=== PATIENT | female | born 1955 | race Caucasian/White ===

== ENCOUNTER 2022-02-14 16:11 | Emergency (ER) | payer OTHER, SELFPAY ==
[2022-02-14 16:17] VITALS: BP 170/79; PULSE 61; RESP 22; TEMP 36.5; O2SAT 100
--- NOTE | 2022-02-14 17:04 | ED.NAVMDI ---
HPI - Nausea/Vomiting/Diarrhea General Chief complaint: Nausea/Vomiting/Diarrhea Stated complaint: Vertigo Nausea Vomiting Time Seen by Provider: 02/14/22 16:59 Source: patient Mode of arrival: Wheelchair Related Data Allergies Allergy/AdvReac Type Severity Reaction Status Date / Time No Known Drug Allergies Allergy Verified 02/14/22 16:21 Patient History Social History Smoking Status: Never smoker Smoking Status: Never smoker Exam Initial Vital Signs Initial Vital Signs: Vital Signs Temperature 97.7 F 02/14/22 16:17 Pulse Rate 61 02/14/22 16:17 Respiratory Rate 22 02/14/22 16:17 Blood Pressure 170/79 H 02/14/22 16:17 Pulse Oximetry 100 02/14/22 16:17 Oxygen Delivery Method 02/14/22 16:17 Course Orders Ordered: ED Orders 02/14/22 16:30 CMP [Comprehensive Metabolic Panel] Stat Complete Blood Count AUTO DIFF Stat Vital Signs Vital signs: Vital Signs - 8 hr 02/14/22 16:17 Temperature 97.7 F Pulse Rate 61 Respiratory Rate 22 Blood Pressure 170/79 H Pulse Oximetry 100 Oxygen Delivery Method Room Air MDM - Nausea/Vomiting/Diarrhea Lab Data Result diagrams: 02/14/22 16:30 02/14/22 16:30
[2022-02-14 17:09] LABS: Alanine Aminotransferase 60 IU/L (<35); Albumin 4.2 g/dL (3.5-5.0); Albumin Globulin Ratio 1.4 (1.0-2.8); Alkaline Phosphatase 62 U/L (38-126); Aspartate Aminotransferase 51 IU/L (14-36); BUN Creatinine Ratio 26.6 (6-22); Bilirubin Total 0.5 mg/dL (0.2-1.3); Blood Urea Nitrogen 17 mg/dL (7-17); Calcium 8.7 mg/dL (8.4-10.2); Carbon Dioxide 27 mmol/L (22-32); Chloride 104 mmol/L (98-107); Estimated Glomerular Filt Rate > 60 mL/min (>60); Glucose 132 mg/dL (80-110); HEMOLYSIS 15 (0-50); Sodium 139 mmol/L (137-145); Total Protein 7.2 g/dL (6.3-8.2)
[2022-02-14 17:10] LABS: Add Manual Diff / Slide Review NO; Basophils Absolute Auto 0 /uL (0-100); Basophils Percent Auto 0.4 % (0-2); Eosinophils Absolute Auto 0 /uL (0-450); Eosinophils Percent Auto 0.1 % (2-4); Hematocrit 39.7 % (36-46); Hemoglobin 13.2 g/dL (12.0-16.0); Lymphocytes Absolute Auto 700 /uL (1100-4500); Lymphocytes Percent Auto 7.4 % (25-40); Mean Corpuscular HGB Conc 33.3 % (30-36); Mean Corpuscular Hemoglobin 28.7 PG (26-34); Mean Corpuscular Volume 86.1 fL (80-100); Monocytes Absolute Auto 300 /uL (0-900); Monocytes Percent Auto 2.5 % (3-14); Neutrophils Absolute Auto 9000 /uL (1500-7000); Neutrophils Percent Auto 89.6 % (50-75); Platelet Count 238 X10^3/uL (150-400); Red Blood Cell Count 4.61 X10^6/uL (4.0-5.2); Red Cell Distribution Width 13.7 % (11.6-14.8)
--- NOTE | 2022-02-14 17:24 | ED.NAVMDI ---
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 On her way there, she developed disequilibrium. She is not sensing a spinning sensation. She developed nausea & vomiting. She went to her clinic, she was given Zofran 0DT with no effect. The patient was not previously ill. She had no URI symptoms, sinus congestion, or ear pain. She denies headaches. She was not experiencing visual changes. She denies confusion, or speech changes. She was unaware of any lateralizing numbness or weakness. The incident started about 3 hours before her assessment here. From [facility] she had to ride a [place] back here. Symptoms have resolved other than the slightest amount of discomfort at the time of evaluation. She has a history of borderline hypertension, she is on no medications. She has a history of migraines. She has no other chronic medical issues, she is on no prescription medications. She has no chronic ENT problems. She is not diabetic. There is no significant family history of stroke or TIA. The provider who saw her on [facility] attempted an Joseph maneuver, the maneuver increased her symptoms. Related Data Previous Rx's Medication Instructions Recorded meclizine 25 mg tablet 25 mg PO QID PRN dizziness #20 tabs 02/14/22 ondansetron 4 mg disintegrating 4 mg PO Q8H PRN nausea and 02/14/22 tablet vomiting #10 tabs Allergies Allergy/AdvReac Type Severity Reaction Status Date / Time No Known Drug Allergies Allergy Verified 02/14/22 16:21 Review of Systems <Walker Frank MD - Last Filed: 03/09/22 19:36> Constitutional Constitutional: Reports as per HPI, Denies chills, Denies fever(s), Denies headache(s) and Denies malaise Eyes Eyes: Denies change in vision Comments: No visual field cuts. ENT Ears, Nose, Mouth, and Throat: Denies otalgia, Denies headache(s), Denies sinus pressure and Denies sore throat Cardiovascular Cardiovascular: Denies chest pain, Denies lightheadedness, Denies palpitations and Denies dyspnea Respiratory Respiratory: Denies dyspnea Gastrointestinal Gastrointestinal: Denies abdominal pain, Denies heartburn, Reports nausea and Reports vomiting Genitourinary Comments: No urinary complaints. Musculoskeletal Comments: No extremity pain or weakness. Integumentary/Breasts Skin/Breast: Denies rash Neurologic Neurologic: Reports as per HPI and Denies headache(s) Endocrine Endocrine: Denies palpitations Hematologic/Lymphatic On Anticoagulants: No Patient History <Walker Frank MD - Last Filed: 03/09/22 19:36> Medical History (Updated 03/01/22 @ 00:00 by ) Borderline hypertension Migraines Social History Smoking Status: Never smoker Smoking Status: Never smoker Exam <Walker Frank MD - Last Filed: 03/09/22 19:36> Initial Vital Signs Initial Vital Signs: Vital Signs Temperature 97.7 F 02/14/22 16:17 Pulse Rate 61 02/14/22 16:17 Respiratory Rate 22 02/14/22 16:17 Blood Pressure 170/79 H 02/14/22 16:17 Pulse Oximetry 100 02/14/22 16:17 Oxygen Delivery Method 02/14/22 16:17 Const General: cooperative, healthy appearing, comfortable and well groomed Orientation: Orientation (Normal) [facility] Head: normal to inspection, normocephalic and atraumatic Ears: TM's normal bilaterally Mouth: oral mucosae normal Eyes Alignment and Position: alignment normal Eyelids: eyelids normal Pupils: PERRL EOM: EOM intact bilaterally, EOM abnormal and No nystagmus Neck Neck: normal visual inspection, full ROM, No JVD and other (No bruit) Thyroid: thyroid normal Resp Effort & Inspection: normal respiratory effort Auscultation: clear to auscultation bilaterally Cardio Rate: regular rate Rhythm: regular rhythm Heart Sounds: S1 normal, S2 normal, no click, no murmurs and no rubs GI Inspection: normal to inspection Palpation: soft and No tender Auscultation: normal bowel sounds Back/Spine/Pelvis Back: No CVA tenderness Skin General: no rashes or lesions noted Neuro General: patient alert, patient awake, patient oriented x3 and no focal motor deficits Cranial Nerves: CN's II-XI intact bilaterally and No nystagmus Other: NIHSS is 0. Extrem General: normal to inspection, full ROM, no pedal edema and no calf tenderness Psych Appearance: grossly normal <Abdias Saldivar MD - Last Filed: 02/15/22 04:49> Initial Vital Signs Initial Vital Signs: Vital Signs Temperature 97.7 F 02/14/22 16:17 Pulse Rate 61 02/14/22 16:17 Respiratory Rate 22 02/14/22 16:17 Blood Pressure 170/79 H 02/14/22 16:17 Pulse Oximetry 100 02/14/22 16:17 Oxygen Delivery Method 02/14/22 16:17 Course <Walker Frank MD - Last Filed: 03/09/22 19:36> Course Course Narrative: Patient's presentation is of concern for TIA/CVA. Initial CT is normal. Patient was given aspirin. The intent is to do CTA, or MRI. I discussed the situation with my relief, Dr. Saldivar. He was assumed the patient's care at change of shift.- JamesjorgeIA 02/14/22@1840. Orders Ordered: Discontinued Medications Aspirin (Aspirin 81 Mg Chew Tab) 324 mg PO NOW ONE Stop: 02/14/22 18:42 Last Admin: 02/14/22 20:38 Dose: 324 mg Documented By: STEVE Sodium Chloride (Normal Saline 0.9%) 1,000 mls @ 250 mls/hr IV CONT IVETT Last Infusion: 02/14/22 22:17 Dose: 0 mls/hr Documented By: Admin: 02/14/22 20:38 Dose: 250 mls/hr Documented By: EB Vital Signs Vital signs: Vital Signs - 8 hr 02/14/22 22:16 Pulse Rate 61 Respiratory Rate 16 Blood Pressure 140/75 Pulse Oximetry 99 Oxygen Delivery Method Room Air <Abdias Saldivar MD - Last Filed: 02/15/22 04:49> Course Course Narrative: Patient's presentation is of concern for TIA/CVA. Initial CT is normal. Patient was given aspirin. The intent is to do CTA, or MRI. I discussed the situation with my relief, Dr. Saldivar. He was assumed the patient's care at change of shift.- JeffIA 02/14/22@9859. Sign-out from Dr Frank. Awaiting for MRI MRA results. Patient symptoms have resolved. Ruling out posterior circulation injury. I have introduced myself to patient and family. She does agree for MRI/MRA. Patient has no complaints at this time Orders Ordered: Discontinued Medications Aspirin (Aspirin 81 Mg Chew Tab) 324 mg PO NOW ONE Stop: 02/14/22 18:42 Last Admin: 02/14/22 20:38 Dose: 324 mg Documented By: STEVE Sodium Chloride (Normal Saline 0.9%) 1,000 mls @ 250 mls/hr IV CONT IVETT Last Infusion: 02/14/22 22:17 Dose: 0 mls/hr Documented By: Admin: 02/14/22 20:38 Dose: 250 mls/hr Documented By: STEVE Reevaluation(s) Reevaluation #1: Reviewed results with patient and partner. Patient asymptomatic at this time. Return precautions reviewed with them. They do desire discharge home. No new events during course of stay. Time: 22:09 Vital Signs Vital signs: Vital Signs - 8 hr 02/14/22 22:16 Pulse Rate 61 Respiratory Rate 16 Blood Pressure 140/75 Pulse Oximetry 99 Oxygen Delivery Method Room Air MDM - Nausea/Vomiting/Diarrhea <Walker Frank MD - Last Filed: 03/09/22 19:36> Lab Data Result diagrams: 02/14/22 16:30 02/14/22 16:30 Labs: Lab Results 02/14/22 02/14/22 02/14/22 Range/Units 16:30 16:30 16:30 WBC 10.0 (4.5-11.0) X10^3/uL RBC 4.61 (4.0-5.2) X10^6/uL Hgb 13.2 (12.0-16.0) g/dL Hct 39.7 (36-46) % MCV 86.1 (80-100) fL MCH 28.7 (26-34) PG MCHC 33.3 (30-36) % RDW 13.7 (11.6-14.8) % Plt Count 238 (150-400) X10^3/uL Neut % (Auto) 89.6 H (50-75) % Lymph % (Auto) 7.4 L (25-40) % [place] % (Auto) 2.5 L (3-14) % Eos % (Auto) 0.1 L (2-4) % Baso % (Auto) 0.4 (0-2) % Neut # (Auto) 9000 H (5256-9569) /uL Lymph # (Auto) 700 L (2159-0581) /uL [place] # (Auto) 300 (0-900) /uL Eos # (Auto) 0 (0-450) /uL Baso # (Auto) 0 (0-100) /uL Sodium 139 (137-145) mmol/L Potassium 4.0 (3.4-5.1) mmol/L Chloride 104 (98-107) mmol/L Carbon Dioxide 27 (22-32) mmol/L BUN 17 (7-17) mg/dL Creatinine 0.64 (0.52-1.04) mg/dL Estimated GFR > 60 (>60) mL/min BUN/Creatinine Ratio 26.6 H (6-22) Glucose 132 H (80-110) mg/dL Calcium 8.7 (8.4-10.2) mg/dL Total Bilirubin 0.5 (0.2-1.3) mg/dL AST 51 H (14-36) IU/L ALT 60 H (<35) IU/L Alkaline Phosphatase 62 (38-126) U/L Total Creatine Kinase 82 (30-135) U/L CK-MB (CK-2) TNP CK-MB (CK-2) Rel Index TNP Troponin I < 0.012 (0.01-0.034) ng/mL Total Protein 7.2 (6.3-8.2) g/dL Albumin 4.2 (3.5-5.0) g/dL Globulin 3.0 (1.7-4.1) g/dL Albumin/Globulin Ratio 1.4 (1.0-2.8) <Abidas Saldivar MD - Last Filed: 02/15/22 04:49> Differential Diagnosis Differential diagnosis: Likely other (Vertigo/TIA/stroke/arrhythmia) Lab Data Labs: Lab Results 02/14/22 02/14/22 02/14/22 Range/Units 16:30 16:30 16:30 WBC 10.0 (4.5-11.0) X10^3/uL RBC 4.61 (4.0-5.2) X10^6/uL Hgb 13.2 (12.0-16.0) g/dL Hct 39.7 (36-46) % MCV 86.1 (80-100) fL MCH 28.7 (26-34) PG MCHC 33.3 (30-36) % RDW 13.7 (11.6-14.8) % Plt Count 238 (150-400) X10^3/uL Neut % (Auto) 89.6 H (50-75) % Lymph % (Auto) 7.4 L (25-40) % [place] % (Auto) 2.5 L (3-14) % Eos % (Auto) 0.1 L (2-4) % Baso % (Auto) 0.4 (0-2) % Neut # (Auto) 9000 H (5990-1049) /uL Lymph # (Auto) 700 L (0897-2162) /uL [place] # (Auto) 300 (0-900) /uL Eos # (Auto) 0 (0-450) /uL Baso # (Auto) 0 (0-100) /uL Sodium 139 (137-145) mmol/L Potassium 4.0 (3.4-5.1) mmol/L Chloride 104 (98-107) mmol/L Carbon Dioxide 27 (22-32) mmol/L BUN 17 (7-17) mg/dL Creatinine 0.64 (0.52-1.04) mg/dL Estimated GFR > 60 (>60) mL/min BUN/Creatinine Ratio 26.6 H (6-22) Glucose 132 H (80-110) mg/dL Calcium 8.7 (8.4-10.2) mg/dL Total Bilirubin 0.5 (0.2-1.3) mg/dL AST 51 H (14-36) IU/L ALT 60 H (<35) IU/L Alkaline Phosphatase 62 (38-126) U/L Total Creatine Kinase 82 (30-135) U/L CK-MB (CK-2) TNP CK-MB (CK-2) Rel Index TNP Troponin I < 0.012 (0.01-0.034) ng/mL Total Protein 7.2 (6.3-8.2) g/dL Albumin 4.2 (3.5-5.0) g/dL Globulin 3.0 (1.7-4.1) g/dL Albumin/Globulin Ratio 1.4 (1.0-2.8) Imaging Data CT scan - head: Radiologist's Impression: [address] [address] [address] Scan Report Signed Patient: Katherin Palmer MR#: [id number] : 1955 Acct:[id number] Age/Sex: 66 / F Date of Service: 02/14/22 Loc: ED Accession Number: [id number] ?? Procedure: CT head/brain wo con Ordering Provider: Walker Frank MD PROCEDURE:? CT HEAD/BRAIN WO CON ? INDICATIONS:? TIA ? TECHNIQUE:? Noncontrast 4.5 mm thick angled axial sections acquired from the foramen magnum to the vertex, with coronal and sagittal reformats.? For radiation dose reduction, the following was used:? automated exposure control, adjustment of mA and/or kV according to patient size.? ? COMPARISON:? None. ? FINDINGS:? Image quality:? Excellent.? ? CSF spaces:? Basal cisterns are patent.? No extra-axial fluid collections.? Ventricles are normal in size and shape.? ? Brain:? No midline shift.? No intracranial masses or hemorrhage.? Ruth-white matter interface is normal.? ? Skull and face:? Calvarium and visualized facial bones are intact, without suspicious lesions.? ? Sinuses:? Visualized sinuses and mastoids are clear.? ? IMPRESSION:? ? 1. No acute intracranial process. ? ? Dictated by: Maegan Interiano M.D. on 02/14/2022 at 18:23 ? ? Approved by: Maegan Interiano M.D. on 02/14/2022 at 18:23 ? MR stroke protocol: Radiologist's Impression: [address] [address] Magnetic Resonance Report Signed Patient: Katherin Palmer MR#: [id number] : 1955 Acct:[id number] Age/Sex: 66 / F Date of Service: 02/14/22 Loc: ED Accession Number: [id number] ?? Procedure: MR stroke Ordering Provider: Abdias Saldivar MD PROCEDURE:? MR STROKE Pre- and post-contrast brain MRI, non-contrast brain MR angiogram, pre- and postcontrast neck MR angiogram ? INDICATIONS:? dizziness ? TECHNIQUE:? Brain:? Noncontrast axial T1 spin echo, axial T2 fast spin echo, sagittal and axial FLAIR, coronal T2 fast spin echo, axial gradient echo, axial diffusion and ADC through the brain.? After the administration of contrast, axial 3D VIBE of the cranial vasculature and brain.? Brain MRA:? Non-contrast 3-D time of flight MR angiogram, with multiple hjqnwya-akielbsgf-blxbqnkzky (MIP) reformats performed.? Neck MRA:? Axial and sagittal TruFISP through the neck.? Coronal dynamic MR angiogram during administration of contrast in the arterial and venous phases, with 3-dimenstional sgmqvlm-jzitvdfyr-stmvglmsgu (MIP) reformats constructed from subtraction images.? ? COMPARISON:? [facility], CT, CT HEAD/BRAIN WO CON, 02/14/2022, 17:48. ? FINDINGS:? Image quality:? There is mild motion artifact.? ? CSF spaces:? There is mild cerebral volume loss with prominence of the ventricles and sulci.? Basal cisterns are patent.? No extra-axial fluid collections.? Brain:? Diffusion weighted images demonstrate no acute infarcts.? No intracranial hemorrhage, mass, or mass effect.? There are subcortical and periventricular foci of white matter T2 hyperintensity consistent with mild chronic small vessel ischemic changes.? Brainstem appears normal.? Normal intravascular flow voids are present.? No abnormal intracranial enhancement.? Skull and face:? Calvarial marrow signal is normal.? Orbits appear normal.? Sinuses:? There is mild mucosal thickening within the ethmoid and maxillary sinuses.? The mastoid air cells are clear. ? BRAIN MR ANGIOGRAM:? Anterior circulation:? Intracranial internal carotid arteries are normal in size and patent bilaterally.? The flow within the paired anterior cerebral arteries is symmetric and patent bilaterally.? The flow within the middle cerebral arteries is symmetric and patent bilaterally.? The anterior communicating artery is patent.? No high-grade stenoses, occlusions, or aneurysms.? Posterior circulation:? The visualized portions of the vertebral arteries are patent and join to form a patent basilar artery.? The flow within the posterior cerebral arteries is symmetric and patent bilaterally.? No high-grade stenoses, occlusions, or aneurysms.? ? NECK MR ANGIOGRAM:? Carotids:? Great vessels demonstrate conventional anatomy as they arise from the aortic arch.? The origins of the common carotid arteries appear patent.? The calibers and courses of both common carotid arteries are normal.? The carotid bulbs appear widely patent.? The internal carotid arteries demonstrate normal course and caliber.? Posterior circulation:? The origins of the vertebral arteries appear patent.? More superior portions of both vertebral arteries demonstrate normal course and caliber, and join to form a normal appearing basilar artery.? Miscellaneous:? Subclavian arteries appear patent.? Pre-contrast images through the neck demonstrate no soft tissue abnormalities.? ? IMPRESSION:? ? BRAIN MRI:? ? 1. No infarct or other acute intracranial abnormality. ? 2. Mild cerebral volume loss and chronic white matter small vessel ischemic changes.? ? BRAIN MR ANGIOGRAM:? ? 1. No high-grade stenosis or occlusion of the central intracranial arteries. ? NECK MR ANGIOGRAM:? ? 1. No high-grade stenosis or occlusion of the head and neck arteries.? The carotid bulbs are widely patent. ? ? Dictated by: Jorden Riojas M.D. on 02/14/2022 at 21:29 ? ? Approved by: Jorden Riojas M.D. on 02/14/2022 at 21:35 ? ECG Data Interpretation: Sinus bradycardia rate [address] elevation or depression MDM Narrative Medical decision making narrative: Appropriate for discharge home. Differential diagnosis includes TIA/stroke stroke vertigo/arrhythmia but not limited. Return precautions reviewed with patient. 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 Patient asymptomatic during course of stay. Discharge Plan Departure Patient Disposition: Home Clinical Impression: Dizziness Instructions: DI for Dizziness-Nonvertigo Activity Restrictions/Additional Instructions: Return immediately if worse if any questions or concerns. See your primary care provider this week for re-evaluation. Today's laboratory studies and imaging have been reassuring. Prescription for Zofran and meclizine have been provided for your symptoms if they do return. Go to emergency department if no improvement with these medications. Prescriptions: New ondansetron 4 mg tablet,disintegrating 4 mg PO Q8H PRN (Reason: nausea and vomiting) Qty: 10 0RF meclizine 25 mg tablet 25 mg PO QID PRN (Reason: dizziness) Qty: 20 0RF Visit Report Forms: Patient Portal/API
--- NOTE | 2022-02-14 17:43 | DI.CT.S_ITS ---
PROCEDURE: CT HEAD/BRAIN WO CON INDICATIONS: TIA TECHNIQUE: Noncontrast 4.5 mm thick angled axial sections acquired from the foramen magnum to the vertex, with coronal and sagittal reformats. For radiation dose reduction, the following was used: automated exposure control, adjustment of mA and/or kV according to patient size. COMPARISON: None. FINDINGS: Image quality: Excellent. CSF spaces: Basal cisterns are patent. No extra-axial fluid collections. Ventricles are normal in size and shape. Brain: No midline shift. No intracranial masses or hemorrhage. Ruth-white matter interface is normal. Skull and face: Calvarium and visualized facial bones are intact, without suspicious lesions. Sinuses: Visualized sinuses and mastoids are clear. IMPRESSION: 1. No acute intracranial process. Dictated by: Maegan Interiano M.D. on 02/14/2022 at 18:23 Approved by: Maegan Interiano M.D. on 02/14/2022 at 18:23
--- NOTE | 2022-02-14 18:50 | DI.MRI.S_ITS ---
PROCEDURE: MR STROKE Pre- and post-contrast brain MRI, non-contrast brain MR angiogram, pre- and postcontrast neck MR angiogram INDICATIONS: dizziness TECHNIQUE: Brain: Noncontrast axial T1 spin echo, axial T2 fast spin echo, sagittal and axial FLAIR, coronal T2 fast spin echo, axial gradient echo, axial diffusion and ADC through the brain. After the administration of contrast, axial 3D VIBE of the cranial vasculature and brain. Brain MRA: Non-contrast 3-D time of flight MR angiogram, with multiple pblilej-qakqfghbo-nxuypkclcf (MIP) reformats performed. Neck MRA: Axial and sagittal TruFISP through the neck. Coronal dynamic MR angiogram during administration of contrast in the arterial and venous phases, with 3-dimenstional mlnxjqo-jzoppaqut-dfalfnckmr (MIP) reformats constructed from subtraction images. COMPARISON: [facility], CT, CT HEAD/BRAIN WO CON, 02/14/2022, 17:48. FINDINGS: Image quality: There is mild motion artifact. CSF spaces: There is mild cerebral volume loss with prominence of the ventricles and sulci. Basal cisterns are patent. No extra-axial fluid collections. Brain: Diffusion weighted images demonstrate no acute infarcts. No intracranial hemorrhage, mass, or mass effect. There are subcortical and periventricular foci of white matter T2 hyperintensity consistent with mild chronic small vessel ischemic changes. Brainstem appears normal. Normal intravascular flow voids are present. No abnormal intracranial enhancement. Skull and face: Calvarial marrow signal is normal. Orbits appear normal. Sinuses: There is mild mucosal thickening within the ethmoid and maxillary sinuses. The mastoid air cells are clear. BRAIN MR ANGIOGRAM: Anterior circulation: Intracranial internal carotid arteries are normal in size and patent bilaterally. The flow within the paired anterior cerebral arteries is symmetric and patent bilaterally. The flow within the middle cerebral arteries is symmetric and patent bilaterally. The anterior communicating artery is patent. No high-grade stenoses, occlusions, or aneurysms. Posterior circulation: The visualized portions of the vertebral arteries are patent and join to form a patent basilar artery. The flow within the posterior cerebral arteries is symmetric and patent bilaterally. No high-grade stenoses, occlusions, or aneurysms. NECK MR ANGIOGRAM: Carotids: Great vessels demonstrate conventional anatomy as they arise from the aortic arch. The origins of the common carotid arteries appear patent. The calibers and courses of both common carotid arteries are normal. The carotid bulbs appear widely patent. The internal carotid arteries demonstrate normal course and caliber. Posterior circulation: The origins of the vertebral arteries appear patent. More superior portions of both vertebral arteries demonstrate normal course and caliber, and join to form a normal appearing basilar artery. Miscellaneous: Subclavian arteries appear patent. Pre-contrast images through the neck demonstrate no soft tissue abnormalities. IMPRESSION: BRAIN MRI: 1. No infarct or other acute intracranial abnormality. 2. Mild cerebral volume loss and chronic white matter small vessel ischemic changes. BRAIN MR ANGIOGRAM: 1. No high-grade stenosis or occlusion of the central intracranial arteries. NECK MR ANGIOGRAM: 1. No high-grade stenosis or occlusion of the head and neck arteries. The carotid bulbs are widely patent. Dictated by: Jorden Riojas M.D. on 02/14/2022 at 21:29 Approved by: Jorden Riojas M.D. on 02/14/2022 at 21:35
[2022-02-14 20:17] LABS: Creatine Kinase 82 U/L (30-135)
[2022-02-14 20:29] LABS: Troponin I < 0.012 ng/mL (0.01-0.034)
[2022-02-14] MEDS: ASPIRIN 81 MG CHEW TAB 324 MG PO (20:38)
[2022-02-14] MEDS: SODIUM CHLORIDE 0.9% 1,000 ML 250 ML IV (20:38)
[2022-02-14 22:16] VITALS: BP 140/75; PULSE 61; RESP 16; O2SAT 99
== END 2022-02-14 22:16 | disposition home or self-care (01) ==
PROVIDERS: Emergency Medicine; Emergency Provider Emergency Medicine
DX: R42 Dizziness and giddiness (principal); R11.2 Nausea with vomiting, unspecified; R07.9 Chest pain, unspecified
CPT/HCPCS: 70450; 70548; 70553; 80053; 82550; 84484; 85025; 93005; 96360; 96361; 99284; A9579